=== PATIENT | male | born 1930 | race African-American/Black ===

== ENCOUNTER 2020-04-19 07:33 | Emergency (ER) | payer OTHER ==
[~2020-04-19] VITALS: Ht 167.6 cm; Wt 98.0 kg
== END 2020-04-19 10:44 | disposition home or self-care (01) ==
LOC: ER 07:33
DX: G57.01 Lesion of sciatic nerve, right lower limb (principal)

== ENCOUNTER 2020-05-01 12:58 | Emergency (ER) | payer OTHER ==
[~2020-05-01] VITALS: Ht 167.6 cm; Wt 89.8 kg
== END 2020-05-01 15:14 | disposition home or self-care (01) ==
LOC: ER 12:58
DX: M51.87 Other intervertebral disc disorders, lumbosacral region (principal)